=== PATIENT | female | born 1985 | race African-American/Black ===

== ENCOUNTER → 2017-03-16 | Outpatient (CLI) | payer OTHER ==
[~2017-03-16] MED LIST: IOHEXOL 240 MG/ML 50ML VIAL. ONE; IOHEXOL 300 MG/ML 75 ML VIAL. IV ONE
--- NOTE | 2017-03-16 15:16 | RAD ---
EXAM: Abdomen and pelvis CT with intravenous contrast. HISTORY: Left lower quadrant pain. TECHNIQUE: Computed tomographic images of the abdomen and pelvis were obtained following the administration of 75 cc Omnipaque 300 intravenous contrast. Multiplanar reformatting was performed. *One or more of the following individualized dose reduction techniques were utilized for this examination: 1. Automated exposure control. 2. Adjustment of the mA and/or kV according to patient size. 3. Use of iterative reconstruction technique. COMPARISON: None. FINDINGS: Evaluation of the lower thorax is unremarkable. There is heterogeneous attenuation of the liver and there is mild periportal edema. There is a tiny hypodense lesion within the right hepatic lobe, likely a superimposed cyst. This is best seen on the coronal reconstructed image 16. The gallbladder, pancreas, spleen and adrenal glands are unremarkable. There is no obstructive uropathy. There is a moderate to large amount of colonic stool. There are prominent fluid-filled loops of small bowel within the pelvis. The limited evaluation of the ovaries. The uterus is anteverted. There is a small amount of pelvic free fluid. No pathologically enlarged lymph node is seen. There is no suspicious osseous lesion. IMPRESSION: 1. Large amount of colonic stool. Correlate for constipation. There are prominent fluid-filled loops of small bowel within the pelvis, without evidence of obstruction. These obscure evaluation of the ovaries. 2. Diffusely heterogeneous liver attenuation and slight periportal edema. Correlate with liver enzymes laboratory values to exclude etiologies such as hepatitis. 3. Suspected tiny hepatic cyst. Electronically signed by: Aleida Sutton MD (03/16/2017 3:13 PM) [id number]
== END | disposition home or self-care (01) ==
LOC: CT 11:53
PROVIDERS: ATTEND Internal Medicine Gastroenterology
DX: R10.32 Left lower quadrant pain (principal)
CPT/HCPCS: 74177; Q9966; Q9967

== ENCOUNTER → 2017-05-18 | Outpatient (CLI) | payer OTHER ==
--- NOTE | 2017-05-18 15:04 | RAD ---
Pelvic ultrasound, 05/18/2017: History: Left lower quadrant pain Transabdominal and and transvaginal scans were obtained. The uterus measures 6.7 x 3.9 x 2.7 cm. A normal central uterine echo is present. The ovaries are of normal size. Small subcentimeter follicular cysts are present in both ovaries. There is blood flow in both ovaries. No adnexal mass is seen. No free fluid is evident in the pelvis. IMPRESSION: No significant abnormality is detected.
--- NOTE | 2017-05-18 15:05 | RAD ---
Abdominal ultrasound, 05/18/2017: History: Abdominal pain The gallbladder is within normal limits in size. There is no sonographic evidence of cholelithiasis. The gallbladder wall is not thickened. The common hepatic duct is of normal caliber. There is no evidence of a hepatic mass. The visualized portions of the pancreas, spleen and both kidneys are unremarkable. The abdominal aorta and inferior vena cava shows no abnormality. No free fluid is evident in the abdomen. IMPRESSION: No significant abdominal abnormality is detected.
== END | disposition home or self-care (01) ==
LOC: US 12:56
PROVIDERS: ATTEND Family Medicine
DX: N83.02 Follicular cyst of left ovary (principal); N83.01 Follicular cyst of right ovary
CPT/HCPCS: 76700; 76830; 76856

== ENCOUNTER → 2017-05-18 | Outpatient (CLI) | payer OTHER ==
[~2017-05-18] MED LIST changes: +BARIUM SULFATE 60% 355 ML SUSP PO ONE; -IOHEXOL 240 MG/ML 50ML VIAL. ONE; -IOHEXOL 300 MG/ML 75 ML VIAL. IV ONE
--- NOTE | 2017-05-18 10:03 | RAD ---
Small bowel series, 05/18/2017: History: Left-sided pain, nausea and vomiting after eating The preliminary abdominal image demonstrates a nonspecific gas pattern. There is no evidence of organomegaly. Overhead and spot films obtained following oral ingestion of liquid barium. 1.4 minutes of fluoroscopy time was utilized. 4 fluoroscopic spot images were recorded. The small bowel loops are of normal caliber with no evidence of thickening of their folds. There is normal transit of the barium through the small bowel to the colon. The terminal ileum is unremarkable. IMPRESSION: No significant small bowel abnormality is detected.
== END | disposition home or self-care (01) ==
LOC: RAD 08:30
PROVIDERS: ATTEND Internal Medicine Gastroenterology
DX: R10.12 Left upper quadrant pain (principal)
CPT/HCPCS: 74250

== ENCOUNTER → 2017-08-01 | Outpatient (CLI) | payer OTHER ==
[~2017-08-01] VITALS: Ht 231.1 cm; Wt 65.8 kg
[~2017-08-01] MED LIST changes: -BARIUM SULFATE 60% 355 ML SUSP PO ONE; +SINCALIDE 1.32 MCG in IV NORMAL SALINE 50ML 30 ML IV ONE
--- NOTE | 2017-08-01 10:38 | RAD ---
EXAM: HEPATOBILIARY SCINTIGRAPHY WITH GALLBLADDER EJECTION FRACTION. HISTORY: Abdominal pain. TECHNIQUE: Scintigraphic images are obtained of the liver and biliary system following intravenous administration of 5.5 mCi of technetium-99m Choletec. After filling of the gallbladder, 1.3 mcg of sincalide were infused and the gallbladder ejection fraction calculated. FINDINGS: There is prompt hepatic clearance of tracer from the blood pool. There is homogeneous distribution throughout the liver. There is normal filling of the gallbladder and normal emptying into the biliary system and small bowel. The gallbladder ejection fraction is 21.2% (normal >35%). IMPRESSION: 1. Decreased gallbladder ejection fraction suggesting biliary dyskinesia. Electronically signed by: Kamlesh Bender MD (08/01/2017 10:35 AM) [id number]
== END | disposition home or self-care (01) ==
LOC: NM 07:30
PROVIDERS: ATTEND Internal Medicine Gastroenterology
DX: R10.84 Generalized abdominal pain (principal)
CPT/HCPCS: 78226; 96374; 96375; A9537; J2805

== ENCOUNTER → 2018-10-07 | Outpatient (CLI) | payer OTHER ==
--- NOTE | 2018-10-07 13:42 | RAD ---
EXAM: Right lower extremity venous Doppler sonogram. HISTORY: Pain and swelling. TECHNIQUE: Mejia scale and color Doppler sonographic evaluation of the right lower extremity veins with spectral waveform analysis was performed. FINDINGS: There is normal color flow, normal compressibility and there are normal spectral waveforms in the common femoral, superficial femoral, popliteal, posterior tibial and greater saphenous veins. IMPRESSION: No Doppler evidence of lower extremity deep venous thrombosis. Electronically signed by: Aleida Sutton MD (10/07/2018 1:39 PM) [place] [id number]
== END | disposition home or self-care (01) ==
LOC: US 12:46
PROVIDERS: ATTEND Family Medicine
DX: M79.604 Pain in right leg (principal)
CPT/HCPCS: 93971

== ENCOUNTER → 2019-08-04 | Outpatient (CLI) | payer OTHER ==
--- NOTE | 2019-08-04 16:19 | RAD ---
3 views of the right knee including standing view the bilateral knees in AP projection for right knee pain, no comparison. FINDINGS: There is no fracture, dislocation, or acute osseous abnormality identified. No significant degenerative changes. Noted incidentally in the medial left tibial metaphysis, there is a smoothly marginated mixed lytic and sclerotic bone lesion, which appears radiographically benign on this single image but is incompletely characterized. 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 IMPRESSION: 1. No acute osseous abnormality of the right knee. 2. Mixed lytic and sclerotic lesion of the left tibial metaphysis, incompletely evaluated with the current AP projection only. Although radiographic features on this single image suggest benignity, further evaluation with dedicated radiographs of the left knee should be obtained as an initial step. Electronically signed by: Aleksandar Quezada MD (08/04/2019 4:16 PM) [id number]
== END ==
LOC: DXRAD 10:04
PROVIDERS: ATTEND Orthopaedic Surgery Sports Medicine
DX: M25.862 Other specified joint disorders, left knee (principal); M25.561 Pain in right knee
CPT/HCPCS: 73560; 73565